=== PATIENT | female | born 1990 | race Caucasian/White ===

== ENCOUNTER 2018-08-09 11:56 | Day surgery (SDC) | payer BC ==
[2018-08-09 12:38] VITALS: BMI 22.6
[2018-08-09 13:18] LABS: Amnisure Internal Control QC ACCEPTABLE (ACCEPTABLE); Amnisure Test No Membranes Rupture (No Rupture)
--- NOTE | 2018-08-09 13:41 | PDOC.LDHP ---
Labor and Delivery H&P Chief complaint: loss of fluid HPI: 28 y/o at 29w1d, patient of Dr. Silva, presents with LOF for the last 2 weeks. She reports she has multiple small gushes per day but not at any particular time. No constant leaking. Does not require wearing pads. No VB, ctx or decreased FM. ROS neg for HEENT, cv, pulm, gi, gu, neuro, psych, skin, musculoskeletal or constitutional symptoms other than mentioned above. OB History Details: 1 prior Current complications: none Current medications: pre- vitamins Previous surgical history: none Allergies/Adverse Reactions: Allergies Allergy/AdvReac Type Severity Reaction Status Date / Time No Known Allergies Allergy Verified 08/09/18 12:39 Social history: none - Physical Exam Vital signs reviewed and normal: yes General: NAD, resting Lungs: nonlabored breathing Abdomen: gravid Extremeties: no edema FHT: category 1 (140s, mod variability, + accels, no decels) [place] contractions every: None - Vaginal Exam cm dilated: 0 (visibly closed, no pooling, no valsalva) - Assessment 28 y/o at 29q1d with no e/o SROM. Amnisure and speculum exam negative. status reassuring with reactive NST. - Plan -: D/c home with precautions. VP3 pending, will call if treatment is indicated.
== END 2018-08-09 13:45 | disposition home health service (06) ==
LOC: L&D/OP 11:56
PROVIDERS: ATTEND Family Medicine
DX: O99.89 Other specified diseases and conditions complicating pregnancy, childbirth and the puerperium (principal); N89.8 Other specified noninflammatory disorders of vagina; Z3A.29 29 weeks gestation of pregnancy; Z79.899 Other long term (current) drug therapy
CPT/HCPCS: 84112; 87480; 87510; 87660; 99285

== ENCOUNTER 2018-10-19 05:30 | Inpatient (IN) | payer BC ==
[2018-10-19 06:05] VITALS: BMI 25.4
[2018-10-19] MEDS: Lactated Ringer's 1,000 ML IV SCH ×2 (06:30→08:40)
[2018-10-19] MEDS ORDERED: Acetaminophen 500 MG TAB PO PRN (06:45)
[2018-10-19] MEDS ORDERED: NS / Oxytocin 40 units/1000ml 1,000 ML IV PRN (06:45)
[2018-10-19] MEDS ORDERED: Lidocaine 1% (PF) 30 ML VIAL SC PRN (06:45)
[2018-10-19] MEDS ORDERED: Carboprost 250 MCG/ML AMP IM PRN (06:45)
[2018-10-19] MEDS ORDERED: Ibuprofen 800 MG TAB PO PRN (06:45)
[2018-10-19] MEDS ORDERED: Meperidine HCl/PF 25 MG/ML VIAL IM/IV PRN (06:45)
[2018-10-19] MEDS ORDERED: Ondansetron PF 4 MG/2 ML Vial IVP PRN ×2 (06:45→09:18)
[2018-10-19] MEDS ORDERED: NS w/ Oxytocin 10 units 500 ML IV SCH (06:45)
[2018-10-19] MEDS ORDERED: HYDROcodone/Acetaminophen 5/325 mg Tablet PO PRN ×2 (06:45→15:44)
[2018-10-19] MEDS ORDERED: Misoprostol 200 MCG TAB PR PRN (06:45)
[2018-10-19] MEDS ORDERED: Butorphanol Tartrate 1 MG/ML VIAL SLOW IVP PRN (06:45)
[2018-10-19] MEDS ORDERED: Methylergonovine 0.2 MG/ML VIAL IM PRN (06:45)
[2018-10-19] MEDS ORDERED: Promethazine HCl 25 MG/ML VIAL IM PRN ×2 (06:45→09:18)
[2018-10-19 06:57] LABS: Hemoglobin 12.4 g/dL (12.0-16.0); Mean Corpuscular HGB CONC 33.3 g/dL (32.0-36.0); Mean Corpuscular Hemoglobin 31.1 pg (27.0-31.0); Mean Corpuscular Volume 93.3 fL (78.0-98.0); Platelet Count 175 thou/uL (130-400); RBC Distribution Width 12.2 % (11.5-14.5); White Blood Cell (WBC) Count 8.3 thou/uL (4.8-10.8)
[2018-10-19 07:24] LABS: HBSAg Index 0.54 S/CO (0-0.99); Hep B Surf Ag Non-Reactive S/CO (NonReactive)
[2018-10-19] MEDS ORDERED: Fentanyl 4 mcg/Bup 0.1% Cadd 100 ML ONE (07:27)
[2018-10-19] MEDS ORDERED: Lidocaine 1% PF 5 ML VIAL ONE (08:27)
[2018-10-19] MEDS ORDERED: Lidocaine PF 1% 10 MG/ML ML IJ ONE (08:40)
[2018-10-19 08:47] LABS: Syphilis Antibody Nonreactive (Nonreactive); Syphilis Antibody Index 0.02 S/CO (<1.00 Non-Reactive)
[2018-10-19] MEDS ORDERED: Lactated Ringer's 500 ML IV PRN (09:18)
[2018-10-19] MEDS ORDERED: Naloxone HCl 0.4 mg/ml Vial IVP PRN ×2 (09:18)
[2018-10-19] MEDS ORDERED: Acetaminophen 325 MG TAB PO PRN (09:18)
[2018-10-19] MEDS ORDERED: Eucerin (Mineral Oil/Petrolatum,White) 30 gm Jar TOP PRN (09:18)
[2018-10-19] MEDS ORDERED: diphenhydrAMINE 50 MG/ML VIAL IVP PRN (09:18)
[2018-10-19] MEDS ORDERED: ePHEDrine/0.9% NaCl/PF SYRINGE 50 mg/10 ml SLOW IVP PRN (09:18)
[2018-10-19] MEDS ORDERED: Fentanyl 4 mcg/Bupivacaine 0.1% Cassette 100 ML EPIDURAL SCH (09:30)
[2018-10-19] MEDS ORDERED: Communication Order-Pharmacy FS SCH (09:30)
[2018-10-19] MEDS ORDERED: Bupivacaine HCl 0.25%/Epi 0.0005/PF 10 ML VIAL FS ONE (11:11)
--- NOTE | 2018-10-19 12:32 | PDOC.EVN ---
Event Note - Event Note Event Note: Came to check patient. SVE 4.5/80/0. Unchanged. Pitocin at 6 units. Continue to titrate. AROM with clear fluid. FHT reassuring, category I.
[2018-10-19] MEDS ORDERED: Milk Of Magnesia 30 ML UDCUP PO PRN (15:44)
[2018-10-19] MEDS ORDERED: NS / Oxytocin 40 units/1000ml 1,000 ML IV SCH (15:44)
[2018-10-19] MEDS ORDERED: Bisacodyl 10 MG SUPP PR PRN (15:44)
[2018-10-19] MEDS ORDERED: Lanolin Ointment 7 GM TUBE TOP PRN (15:44)
[2018-10-19] MEDS ORDERED: Benzocaine/Menthol 20-0.5% 60 ML CAN TOP PRN (15:44)
[2018-10-19] MEDS: Ferrous Sulfate 325 MG TAB PO SCH (18:30)
[2018-10-19] MEDS: Ibuprofen 800 MG TAB PO SCH (21:09)
[2018-10-19] MEDS: Docusate Calcium (SURFAK) 240 MG CAP PO SCH (21:09)
[2018-10-20] MEDS: Ibuprofen 800 MG TAB PO SCH ×2 (05:19→13:58)
[2018-10-20] MEDS: Ferrous Sulfate 325 MG TAB PO SCH ×2 (07:32→16:36)
[2018-10-20] MEDS: Docusate Calcium (SURFAK) 240 MG CAP PO SCH (08:11)
--- NOTE | 2018-10-20 10:19 | PDOC.OBPPN ---
FMR OB PN: Subj - Interval History Hospital Day: 2 Day: 2 Chief Complaint: cxns, IOL Indentification: 28 yo F delivered at 39.2 by Interval History: less bleeding than menses, eating well, ambulating, +flatus, no complaints FMR OB PN: Obj - Maternal Vital signs: BP: 110/51 HR: 75 RR: 12 Tmax: 98.1 Pox: 100% on RA Wt: 71.6kg FMR OB PN: Exam - Physical Exam General: NAD, awake, alert and oriented HEENT: normocephalic and atraumatic, PERRLA Neck: supple, FROM General: CTAB, no respiratory distress, no wheezing Abdomen: soft, gravid, fundus(cm) Musculoskeletal: normal gait and station, pulses present Neurological: cranial nerves II through XII intact Skin: no rash, good tugor, capillary refill <2 seconds Psychiatric: intact recent and remote memory FMR OB PN: Data - Labs Lab results: hgb 12.4 on admission QBL 124ml FMR OB PN: A/P - Problem List (1) care and examination Status: Acute Code(s): Z39.2 - ENCOUNTER FOR ROUTINE FOLLOW-UP Discussion: Date/Time: 10/20/18 1018 28yo female delivered by 10/19/18 #PP day 1 - w/ 1 degree perineal lac, repaired 1510 10/19/18 - GBS -, rubella immunue - QBL 134ml - eating well, ambulating, passing flatus, no N/V/D, less bleeding than menses - pain well-controlled with Ibuprofen, norco x1 - anticipate d/c this PM This patient was discussed with Dr. Pabon who agrees with the above documentation and plan. Addendum - Attending - Attending Attestation Date/Time: 10/22/18 0849 I personally evaluated the patient and discussed the management with Dr. Cardona I agree with the History, Examination, Assessment and Plan documented above with any addition or exceptions noted below.
[2018-10-20 15:59] VITALS: BP 108/64; TEMP 97.6
== END 2018-10-20 19:10 | disposition home or self-care (01) | DRG 807 ==
LOC: L&D 05:35 → 3SW 18:04
PROVIDERS: ADMIT Family Medicine; ATTEND Family Medicine
PROC: 10E0XZZ Delivery of Products of Conception, External Approach (ICD-10-PCS; principal; 2018-10-19)
PROC: 0HQ9XZZ Repair Perineum Skin, External Approach (ICD-10-PCS; 2018-10-19)
DX: O70.0 First degree perineal laceration during delivery (principal); Z37.0 Single live birth; Z3A.39 39 weeks gestation of pregnancy
CPT/HCPCS: 51702; 85027; 86780; 86850; 86900; 86901; 87340; J2001